=== PATIENT | female | born 1965 | race Caucasian/White ===

== ENCOUNTER → 2018-02-16 | Outpatient (CLI) | payer BC ==
[~2018-02-16] VITALS: Ht 167.6 cm; Wt 148.6 kg
[~2018-02-16] MED LIST: DILTIAZEM 24HR180 M3 PO; HYDROCHLOROTHIA25 MG PO; K-DUR20 MEQ PO; LO-DOSE ASPIRIN81 M1 PO; PRAVACHOL80 MG PO
== END | disposition home or self-care (01) ==
LOC: AMB 11:45
DX: Z12.11 Encounter for screening for malignant neoplasm of colon (principal); D12.2 Benign neoplasm of ascending colon; D12.4 Benign neoplasm of descending colon; D12.3 Benign neoplasm of transverse colon; K64.1 Second degree hemorrhoids; K57.30 Diverticulosis of large intestine without perforation or abscess without bleeding; E11.9 Type 2 diabetes mellitus without complications; I10 Essential (primary) hypertension; Z79.82 Long term (current) use of aspirin
CPT/HCPCS: 88305; 93005